=== PATIENT | female | born 1955 | race Caucasian/White ===

== ENCOUNTER → 2022-12-01 10:51 | Outpatient (CLI) | payer OTHER | END | disposition home or self-care (01) | LOC: EKG 10:51 | PROVIDERS: ATTEND Surgery | DX: I10 Essential (primary) hypertension (principal); C18.2 Malignant neoplasm of ascending colon; R19.4 Change in bowel habit; R10.84 Generalized abdominal pain ==

== ENCOUNTER 2022-12-07 12:55 | Inpatient (IN) | payer OTHER ==
[~2022-12-07] VITALS: Ht 157.5 cm; Wt 65.8 kg
[2022-12-08] MEDS ORDERED: CRESTOR20 MG PO (11:09)
[2022-12-08] MEDS ORDERED: LEVOTHYROXINE25 MCG PO (11:09)
[2022-12-08] MEDS ORDERED: COZAAR50 MG PO (11:09)
[2022-12-12] MEDS ORDERED: ALENDRONATE SOD70 MG (11:20)
[2022-12-12] MEDS ORDERED: BUPROPION XL150 MG (11:21)
[2022-12-12] MEDS ORDERED: VENLAFAXINE HCL75 M1 (11:21)
[2022-12-12] MEDS ORDERED: METOPROLOL SUCC25 MG (11:21)
[2022-12-12] MEDS ORDERED: SYNTHROID100 MCG (11:21)
[2022-12-12] MEDS ORDERED: LOSARTAN POTAS100 MG (11:21)
[2022-12-12] MEDS ORDERED: LEVO-T25 MCG (11:22)
[2022-12-12] MEDS ORDERED: LOSARTAN POTASS50 MG (11:23)
[2022-12-15] MEDS ORDERED: TRAM1TAB98 PO (09:06)
[2022-12-15] MEDS ORDERED: PEPCID AC20 MG PO (09:06)
[2022-12-15] MEDS ORDERED: INTESTINEX680 M1 PO (09:07)
== END 2022-12-15 14:23 | disposition home or self-care (01) | DRG 331 ==
LOC: O/R 12-12 05:45 → SURH 12-12 08:45
PROVIDERS: ADMIT Surgery; ATTEND Surgery
PROC: 07BB4ZZ Excision of Mesenteric Lymphatic, Percutaneous Endoscopic Approach (ICD-10-PCS; 2022-12-12)
PROC: 0DTF4ZZ Resection of Right Large Intestine, Percutaneous Endoscopic Approach (ICD-10-PCS; principal; 2022-12-12 19:15)
DX: C18.0 Malignant neoplasm of cecum (principal); R59.0 Localized enlarged lymph nodes; E03.9 Hypothyroidism, unspecified; E78.5 Hyperlipidemia, unspecified

== ENCOUNTER 2023-01-12 05:55 | Day surgery (SDC) | payer OTHER ==
[~2023-01-12] VITALS: Ht 157.5 cm; Wt 63.5 kg
[~2023-01-12 05:55] MED LIST: ALENDRONATE SOD70 MG; BUPROPION XL150 MG; COZAAR50 MG PO; CRESTOR20 MG PO; INTESTINEX680 M1 PO; LEVO-T100 MCG PO; LEVO-T25 MCG; LEVOTHYROXINE25 MCG PO; LOSARTAN POTAS100 MG; LOSARTAN POTASS50 MG; METOPROLOL SUCC25 MG; PEPCID AC20 MG PO; SYNTHROID100 MCG; TRAM1TAB98 PO; VENLAFAXINE HCL75 M1
[2023-01-12] MEDS ORDERED: TRAM1TAB98 PO (09:23)
== END 2023-01-12 12:50 | disposition home or self-care (01) ==
LOC: CIR.AMB 05:55
PROVIDERS: ATTEND Surgery
DX: C18.2 Malignant neoplasm of ascending colon (principal); I10 Essential (primary) hypertension; Z20.822 Contact with and (suspected) exposure to COVID-19